=== PATIENT | female | born 1960 | race Caucasian/White ===

== ENCOUNTER → 2018-11-05 08:49 | Outpatient (CLI) | payer BC, SELFPAY ==
--- NOTE | 2018-11-05 08:49 | RAD_ITS ---
STUDY: X-RAY - LEFT FOOT CLINICAL: Female, 58 years old. Dorsal foot pain TECHNIQUE: 3 view(s) of the foot. COMPARISON: None. FINDINGS: Normal talus and tarsal bones. Calcaneal spurs Normal visualized subtalar, talonavicular, calcaneocuboid, tarsal and tarsometatarsal articulations. Normal metatarsi. Normal metatarsophalangeal joint of the great toe. Normal tibial and fibular sesamoid bones. Normal interphalangeal joint of the great toe. Normal phalanges of the great toe. Normal second through fifth metatarsophalangeal joints. Normal interphalangeal joints and phalanges of the lesser toes. The soft tissue structures are unremarkable. RAD/Foot min 3 Views IMPRESSION: Calcaneal spurs, no demonstrated fracture or suspicious osseous lesion Electronically Signed: Ishan Mccoy MD at 9:33 EDT , Service support ,
== END ==
PROVIDERS: Family Provider Nurse Practitioner Family; PCP Nurse Practitioner Family; Referring Provider Nurse Practitioner Family; Visit Provider Nurse Practitioner Family
DX: E03.9 Hypothyroidism, unspecified (principal); I10 Essential (primary) hypertension; E78.1 Pure hyperglyceridemia
CPT/HCPCS: 73630

== ENCOUNTER → 2019-03-11 07:33 | Outpatient (CLI) | payer BC, SELFPAY ==
[2019-03-11 11:13] LABS: Free T3 2.5 pg/mL (2.18-3.98)
[2019-03-11 13:58] LABS: Vitamin B12 494 pg/mL (211-911); Vitamin D,25 Hydroxy 33.1 ng/mL (29.95-100.01)
[2019-03-15 20:07] LABS: Testosterone, % Free 2.41 % (0.50-2.80); Testosterone, Free 0.24 ng/dL (0.10-0.85); Testosterone, Total 10 ng/dL (3-41)
[2019-03-16 12:08] LABS: T3 Reverse 16.3 ng/dL (9.2-24.1)
== END ==
PROVIDERS: Family Provider Nurse Practitioner Family; PCP Nurse Practitioner Family; Referring Provider Nurse Practitioner Family; Visit Provider Nurse Practitioner Family
DX: E03.9 Hypothyroidism, unspecified (principal); E55.9 Vitamin D deficiency, unspecified; M79.672 Pain in left foot; R53.83 Other fatigue
CPT/HCPCS: 36415; 82306; 82607; 82746; 83735; 84402; 84403; 84481; 84482

== ENCOUNTER → 2019-06-08 10:30 | Outpatient (CLI) | payer BC, SELFPAY ==
[2019-06-08 12:32] LABS: T3 Total - Triiodothyronine 1.03 ng/mL (0.6-1.81)
[2019-06-08 12:36] LABS: T4 Free Direct 1.06 ng/dL (0.76-1.46); T4 Total, Thyroxin 9.9 ug/dL (4.8-13.9); Thyroid Stim Hormone (TSH) 2.71 uIU/mL (0.358-3.74)
[2019-06-09 16:03] LABS: Thyroglobulin Antibody < 1.0 IU/mL (0.0-0.9); Thyroid Peroxidase AB < 9 IU/mL (0-34)
== END ==
PROVIDERS: PCP Nurse Practitioner Family
DX: Z13.29 Encounter for screening for other suspected endocrine disorder (principal)
CPT/HCPCS: 36415; 84436; 84439; 84443; 84480; 86376; 86800

== ENCOUNTER → 2020-05-11 12:08 | Outpatient (CLI) | payer BC, SELFPAY ==
[2020-05-11 16:10] LABS: ALB/GLOB Ratio 0.9 RATIO (0.9-2.4); AST(SGOT) 10 U/L (15-37); Alanine Aminotransfer ALT/SGPT 28 U/L (13-56); Albumin, Serum 3.5 g/dL (3.2-5.0); Alkaline Phosphatase 66 U/L (45-117); Anion Gap 6 (5-15); BUN 16 mg/dL (7-18); BUN/Creat Ratio 24.2 RATIO (10-20); Chloride 107 mmol/L (98-107); Cholesterol 166 mg/dL (200); Creatinine, Serum 0.66 mg/dL (0.55-1.02); EST Glomerular Filtration Rate 97 mL/min (>60); Est Glom Filt Rate - Afr Amer 118 mL/min (>60); Ferritin 101 ng/mL (8-252); Free T3 2.4 pg/mL (2.18-3.98); Globulin 3.8 g/dL (2.2-4.2); Glucose 82 mg/dL (74-106); High Density Lipoprotein 36 mg/dL; Potassium 4.1 mmol/L (3.5-5.1); Protein, Total 7.3 g/dL (6.4-8.2); Sodium Level 138 mmol/L (136-145); T4 Free Direct 0.77 ng/dL (0.76-1.46); T4 Total, Thyroxin 5.8 ug/dL (4.8-13.9); Triglycerides 231 mg/dL; Very Low Density Lipoprotein 46 mg/dL (5-40)
[2020-05-11 16:14] LABS: BNP,B-Type NATRIURETIC PEPTIDE 4.1 pg/mL (0-100)
[2020-05-11 16:16] LABS: T3 Total - Triiodothyronine 1.14 ng/mL (0.6-1.81); Vitamin D,25 Hydroxy 55.9 ng/mL
[2020-05-20 09:39] LABS: T3 Reverse 10.6 ng/dL (9.2-24.1); Thyroglobulin Antibody < 1.0 IU/mL (0.0-0.9); Thyroid Peroxidase AB < 9 IU/mL (0-34)
== END ==
PROVIDERS: PCP Nurse Practitioner Family
DX: E03.9 Hypothyroidism, unspecified (principal); I10 Essential (primary) hypertension; E78.1 Pure hyperglyceridemia; E55.9 Vitamin D deficiency, unspecified; R53.83 Other fatigue; R60.9 Edema, unspecified
CPT/HCPCS: 36415; 80053; 80061; 82306; 82728; 83880; 84436; 84439; 84443; 84480; 84481; 84482; 86376; 86800

== ENCOUNTER 2021-01-21 14:00 | Outpatient (RCR) | payer BC, SELFPAY ==
--- NOTE | 2020-11-21 08:56 | HP.PTEVAL_ITS ---
Patient's Visit Information PERRI HENDRIX is a 60 year old F referred to Physical Therapy by CLAIRE Grimes with a diagnosis of L shoulder and R hip pain. Date of Evaluation: 11/21/20 Physical Therapist: Shreyas Lux PT, ATC - Visit Plan Frequency: 2-3x /Week Duration: 4-6 Weeks Plan: L shoulder: Rotator cuff strengthening, scap stab ex's, UBE, and HEP. R hip: R LE stretching (piriformis and HS's), strengthening, core stab ex's, and HEP - Subjective Pt reports her L shoulder has been sore for 6 months. Pt reports her pain had an insidious onset in nature, but notes she has 6 grandchildren which may have caused some of the pain. Pt reports the pain has progressively worsened over this timespan, and describes the pain as sharp. Pt reports reaching behind her, and turning her steering wheel really increases her pain. Pt reports she must be careful with how she lifts objects like a laundry basket, and she makes sure not to lift her grandchildren with the L UE. Pt notes her L UE has been swelling over the past year. 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 No tingling or numbness in L UE. Pt is R hand dominant. Pt reports occasional sleep difficulty secondary to pain. 1/10 pain while at rest, 9/10 pain at worst (when she moves it wrong). Pt also notes R hip has been sore for about one year. Pt reports the pain is located in the gluteal region and radiates into her groin region. Pt reports she cant sit for a prolonged period of time, and she has difficulty with stair negotiation secondary to pain. Pt reports occasional tingling down her R LE to the mid calf region. Pt reports moving her hip around after a long car ride helps with the pain. Pt also notes DTR to R hip helps as well. Pt reports sleep difficulty as well on occasion secondary to pain. Pt reports she has not had xrays on the L shoulder or the R hip. R hip pain is 2/10 at rest, 7/10 pain at worst - Pain L shoulder Pain Intensity (Out of 10): 0 Pain Intensity Range: 9 R hip Pain Intensity (Out of 10): 2 Pain Intensity Range: 7 - Objective Neuro: B UE and LE sensation are WNL to light touch. B patellar and bicepital reflex= 2/3. Shoulder ROM: R shoulder flex= 165, abd= 160, ER= 30, IR WNL: L shoulder flex= 135, abd= 130, ER= 35, IR WNL. Hip ROM: B hips are WFL. Shoulder MMT: R shoulder is grossly 5/5 throughout. L shoulder is 4-/5 and painful with all testing. Hip MMT: L hip is grossly 5/5 throughout. R hip is grossly 4/5 throughout. Shoulder Special tests: Pos HK and empty can. LB and R hip Special tests: NE with repeated movements. Pos piriformis test - Balance/Special Test Scores Quick DASH Score: 43.1800 - Goals Goal 1:: Decrease L shoulder and R hip pain x 50% to aid with sleep Goal Time Frame: 4-6 Weeks Goal 2:: Increase L shoulder flex and abd ROM x 20 degrees to aid with overhead lifting Goal Time Frame: 4-6 Weeks Goal 3:: Increase L shoulder and R hip strength x 1 grade to aid with IADL's Goal Time Frame: 4-6 Weeks Goal 4:: I with HEP Goal Time Frame: 4-6 Weeks - Rehabilitation Potential Physical Therapy Diagnosis: Pt has L shoulder pain, weakness, and limited ROM secondary to L shoulder impingement syndrome. Pt has R hip pain, weakness, and limited flexibility secondary to piriformis syndrome. Rehabilitation Potential: Good - Anticipated Interventions Patient/Client Instruction: Educate patient on: Condition, Plan of Care For the Purpose of:: To improve self management Therapeutic Exercise to Include: Strength training, Endurance training, Body mechanics, Postural training, Dynamic Lumbar Stabilization, Scapular Strength/Stabilization For the Purpose of:: To decrease pain, To increase ROM, To improve muscle per formance and motor function Cryotherapy (ice pack, ice massage): Yes For the Purpose of:: To decrease pain Thank you for the opportunity to evaluate your patient. For Medicare and Medicare HMO plans, please review the plan of care and approve it. It will need to be FAXED BACK to us at [phone] for Medicare purposes. For Medicare only, by signing this I certify the plan of care. Please let me know if there are questions or concerns regarding this plan of care. Physician Signature: Date:
--- NOTE | 2021-01-18 14:57 | HP.PTREVAL ---
Maria Antonia Hoffmann, BRENNA-C, It has been my pleasure to treat PERRI HENDRIX over the last 4 visits for L shoulder and R hip pain. Please see the progress note below for an update on the physical therapy plan of care! Subjective: Pt reports she is still in a lot of pain. I dont think I have gotten any better yet. I have had to cancel a lot due to work Objective/Function: Pain is relatively unchanged after 2 Rx sessions. L shoulder ROM: flex= 140, abd= 85. L shoulder MMT 3-/5 throughout and painful. R hip 4/5 and painful. Pt is progressing but would benefit from further PT to focus on strengthening and pain control Plan Plan: L shoulder: Rotator cuff strengthening, scap stab ex's, UBE, and HEP. R hip: R LE stretching (piriformis and HS's), strengthening, core stab ex's, and HEP Balance/Gait/Functional tests - Balance/Special Test Scores Quick DASH Score: 43.1800 Goals Goal 1:: Decrease L shoulder and R hip pain x 50% to aid with sleep Goal Time Frame: 4-6 Weeks Goal Progress: Progressing Goal 2:: Increase L shoulder flex and abd ROM x 20 degrees to aid with overhead lifting Goal Time Frame: 4-6 Weeks Goal Progress: Progressing Goal 3:: Increase L shoulder and R hip strength x 1 grade to aid with IADL's Goal Time Frame: 4-6 Weeks Goal Progress: Progressing Goal 4:: I with HEP Goal Time Frame: 4-6 Weeks Goal Progress: Progressing Anticipated Interventions Patient/Client Instruction: Educate patient on: Condition, Plan of Care For the Purpose of:: To improve self management Therapeutic Exercise to Include: Strength training, Endurance training, Body mechanics, Postural training, Dynamic Lumbar Stabilization, Scapular Strength/Stabilization For the Purpose of:: To decrease pain, To increase ROM, To improve muscle performance and motor function Cryotherapy (ice pack, ice massage): Yes For the Purpose of:: To decrease pain Please do not hesitate to contact me at [phone] by phone or if you have questions or concerns regarding this new plan of care! Sincerely, Shreyas Lux, PT, ATC
--- NOTE | 2021-04-29 14:41 | HP.PT.NRP ---
PERRI HENDRIX was seen in my office for initial evaluation on 11/21/20. The following Plan of Care was established for this patient: Initial Frequency: 2-3x /Week Initial Duration: 4-6 Weeks Patient/Client Instruction: Educate patient on: Condition, Plan of Care For the Purpose of:: To improve self management Therapeutic Exercise to Include: Strength training, Endurance training, Body mechanics, Postural training, Dynamic Lumbar Stabilization, Scapular Strength/Stabilization For the Purpose of:: To decrease pain, To increase ROM, To improve muscle performance and motor function Cryotherapy (ice pack, ice massage): Yes For the Purpose of:: To decrease pain This patient was last seen in our office . Pertinent comments regarding their Physical therapy will appear below: Pt was treated for 5 PT visits for L shoulder and R hip pain through the date of 01/21/21. Pt has not returned today and is therefore discontinued at this time. At this point I will be discontinuing this patient from physical therapy. I would be happy to see this patient again in the future if found appropriate by the physician. Thank you! Shreyas Lux, PT, ATC Balance/Gait/Functional tests - Balance/Special Test Scores Quick DASH Score: 43.1800
== END 2021-01-21 19:00 | disposition home or self-care (01) ==
LOC: PT 14:00
PROVIDERS: PCP Nurse Practitioner Family; Referring Provider Nurse Practitioner Family; Visit Provider Nurse Practitioner Family
DX: M25.519 Pain in unspecified shoulder (principal); M25.551 Pain in right hip
CPT/HCPCS: 97110; 97161; 97164

== ENCOUNTER → 2021-08-29 | Outpatient (CLI) | payer BC, SELFPAY ==
[2021-08-29 12:40] LABS: ALB/GLOB Ratio 0.9 RATIO (0.9-2.4); AST(SGOT) 14 U/L (15-37); Alanine Aminotransfer ALT/SGPT 31 U/L (13-56); Albumin, Serum 3.3 g/dL (3.2-5.0); Alkaline Phosphatase 60 U/L (45-117); Anion Gap 5 (5-15); BUN 11 mg/dL (7-18); BUN/Creat Ratio 14.7 RATIO (10-20); Calcium,Total 8.7 mg/dL (8.5-10.1); Chloride 108 mmol/L (98-107); Cholesterol 180 mg/dL (200); Creatinine, Serum 0.75 mg/dL (0.55-1.02); EST Glomerular Filtration Rate 84 mL/min (>60); Est Glom Filt Rate - Afr Amer 101 mL/min (>60); Globulin 3.7 g/dL (2.2-4.2); Glucose 117 mg/dL (74-106); High Density Lipoprotein 38 mg/dL; Sodium Level 140 mmol/L (136-145); Triglycerides 176 mg/dL; Very Low Density Lipoprotein 35 mg/dL (5-40)
[2021-08-29 12:41] LABS: Vitamin D,25 Hydroxy 63.7 ng/mL
[2021-08-29 13:05] LABS: Ferritin 97 ng/mL (8-252); Free T3 2.5 pg/mL (2.18-3.98); T4 Free Direct 0.72 ng/dL (0.76-1.46); Thyroid Stim Hormone (TSH) 6.28 uIU/mL (0.358-3.74)
[2021-09-06 20:45] LABS: T3 Reverse 9.6 ng/dL (9.2-24.1); Thyroglobulin Antibody < 1.0 IU/mL (0.0-0.9); Thyroid Peroxidase AB 8 IU/mL (0-34)
== END | disposition home or self-care (01) ==
LOC: BIMLAB 08:43
PROVIDERS: PCP Nurse Practitioner Family; Referring Provider Nurse Practitioner Family; Visit Provider Nurse Practitioner Family
DX: E03.9 Hypothyroidism, unspecified (principal); R53.83 Other fatigue; E55.9 Vitamin D deficiency, unspecified; E06.3 Autoimmune thyroiditis; L65.9 Nonscarring hair loss, unspecified; R63.5 Abnormal weight gain; Z13.29 Encounter for screening for other suspected endocrine disorder; Z13.6 Encounter for screening for cardiovascular disorders; Z13.1 Encounter for screening for diabetes mellitus
CPT/HCPCS: 36415; 80053; 80061; 82306; 82728; 84436; 84439; 84443; 84480; 84481; 84482; 86376; 86800

== ENCOUNTER 2021-10-30 16:00 | Outpatient (RCR) | payer BC, SELFPAY ==
--- NOTE | 2021-06-18 10:50 | HP.PTEVAL_ITS ---
Patient's Visit Information PERRI HENDRIX is a 60 year old F referred to Physical Therapy by CLAIRE Grimes with a diagnosis of BPPV. Date of Evaluation: 06/18/21 Physical Therapist: OZIEL Gomez - Visit Plan Frequency: 1-2x /Week Duration: 4 Weeks Plan: 1-2X/ week for 4 weeks for vestibular inputs, walking with vertical and horizontal head turns, smooth pursuit in vertical with HEP. HEP: Vetical smooth pursuit, standing in corner on foam with chair in front with EC - Subjective It has been a couple of months. It was in the begining of Feb and felt funny driving to a [employer] appt and she went to go lay down flat and the room was spinning. The therapist put the head of the bed up and she felt nervous and did not feel right. Her came to get her. That was the most severe she had it. The dizzy lasted very short time and just felt off the rest of the time naheed the next few days. She saw her Dr. She felt great for 3-4 weeks. Then at the 4 week дмитрий she could feel it in her stomach and icky in her head and took mclezene and no room spinning with that. 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 She feels stomach icky this morning and her glasses are not on either and she feels things are blurry. She was fine until 2 weeks ago and started to feel weird. She know if she puts her head back quick she will occ that she has to grab and stabilize. IF she lays on her R side she feels a sensation of spinning but not spinning. She feels that she might have had some history of feeling off, not room spinning etc. Driving if she turns to quick she will feel that she moved too quick. She feels senstation of moving now more than in the past. She has slept with her head up for all these months. She is sleeping ok. Pt saw Dr Quesada and he did the hearing things and he felt that it was positional vertigo that was resolved. She saw a chiropractor and she felt that was little bit of pressure in the R ear. She can always lay on her L. - Pain L shoulder pain Pain Intensity (Out of 10): 2 - Objective -Hallpike B for dizziness or nystagmus. -Roll test B for dizziness or nystagmus. Horizontal Smooth pursuit X 30 seconds good tracking and no dizzziness. Vertical smooth pursuit X 30 seconds...jumpy tracking at times with no dizziness. Walking with horizontal head turns... no dizzy possible slight off feeling: Vertical head turns with walking... no dizzy with definite off and unsteady feeling. CATSIB 91 ( def off with standing on foam with EC).. had to reach and grab // bar. FGA 24 - Balance/Special Test Scores Functional Gait Assessment Score: 24 % Disability: 20.0000 CATSIB Score (Max score 120 seconds): 91 Dizziness Score: 38 - Goals Goal 1:: I HEP Goal Time Frame: 2-4 Weeks Goal 2:: Increase CATSIB by 10 seconds to decrease freq of dizziness (score was 91 at eval) Goal Time Frame: 4-6 Weeks Goal 3:: Be able to walk with vertical head turns without having any sensation of feeling off and unsteady - Rehabilitation Potential Rehabilitation Potential: Good - Anticipated Interventions Patient/Client Instruction: Educate patient on: Plan of Care For the Purpose of:: To decrease pain, To increase ROM, To improve nutrient delivery to tissue, To increase oxygenation perfusion, To improve muscle performance and motor function, To improve ability to perform ADL's, To increase tolerance to activity/condition/position, To improve performance and independence with ADL's, To improve ability of physical actions for home/community/work/leisure, To improve health of tissue, To decrease soft tissue restriction, To increase flexibility/ROM Therapeutic Exercise to Include: Strength training, Postural training, Flexibilty training, Neuromotor development, Passive ROM, Active ROM, Scapular Strength/Stabilization For the Purpose of:: To decrease swelling/inflammation, To increase ROM, To improve nutrient delivery to tissue, To improve muscle performance and motor function, To improve ability to perform ADL's, To increase tolerance to activity/condition/position, To improve performance and independence with ADL's, To decrease level of supervision to perform tasks, To improve ability of physical actions for home/community/work/leisure, To improve health of tissue, To decrease soft tissue restriction, To increase flexibility/ROM Manual Therapy Techniques to Include: Mobilization, Passive ROM, Soft tissue mobilization For the Purpose of:: To decrease pain, To increase ROM, To improve nutrient delivery to tissue, To improve muscle performance and motor function, To improve ability to perform ADL's, To improve performance and independence with ADL's, To decrease level of supervision to perform tasks, To improve ability of physical actions for home/community/work/leisure, To improve health of tissue, To decrease soft tissue restriction, To increase flexibility/ROM Thank you for the opportunity to evaluate your patient. For Medicare and Medicare HMO plans, please review the plan of care and approve it. It will need to be FAXED BACK to us at [phone] for Medicare purposes. For Medicare only, by signing this I certify the plan of care. Please let me know if there are questions or concerns regarding this plan of care. Physician Signature: Date:
--- NOTE | 2022-01-06 10:56 | HP.PT.NRP ---
PERRI HENDRIX was seen in my office for initial evaluation on 06/18/21. The following Plan of Care was established for this patient: Initial Frequency: 1-2x /Week Initial Duration: 4 Weeks Patient/Client Instruction: Educate patient on: Plan of Care For the Purpose of:: To decrease pain, To increase ROM, To improve nutrient delivery to tissue, To increase oxygenation perfusion, To improve muscle performance and motor function, To improve ability to perform ADL's, To increase tolerance to activity/condition/position, To improve performance and independence with ADL's, To improve ability of physical actions for home/community/work/leisure, To improve health of tissue, To decrease soft tissue restriction, To increase flexibility/ROM Therapeutic Exercise to Include: Strength training, Postural training, Flexibilty training, Neuromotor development, Passive ROM, Active ROM, Scapular Strength/Stabilization For the Purpose of:: To decrease swelling/inflammation, To increase ROM, To improve nutrient delivery to tissue, To improve muscle performance and motor function, To improve ability to perform ADL's, To increase tolerance to activity/condition/position, To improve performance and independence with ADL's, To decrease level of supervision to perform tasks, To improve ability of physical actions for home/community/work/leisure, To improve health of tissue, To decrease soft tissue restriction, To increase flexibility/ROM Manual Therapy Techniques to Include: Mobilization, Passive ROM, Soft tissue mobilization For the Purpose of:: To decrease pain, To increase ROM, To improve nutrient delivery to tissue, To improve muscle performance and motor function, To improve ability to perform ADL's, To improve performance and independence with ADL's, To decrease level of supervision to perform tasks, To improve ability of physical actions for home/community/work/leisure, To improve health of tissue, To decrease soft tissue restriction, To increase flexibility/ROM This patient was last seen in our office 10/30/21. Pertinent comments regarding their Physical therapy will appear below: GABRIELA PT. At this point I will be discontinuing this patient from physical therapy. I would be happy to see this patient again in the future if found appropriate by the physician. Thank you! Tamie De Dios, MPT Balance/Gait/Functional tests - Balance/Special Test Scores Functional Gait Assessment Score: 24 % Disability: 20.0000 CATSIB Score (Max score 120 seconds): 91 Dizziness Score: 38
== END 2021-10-30 19:00 | disposition home or self-care (01) ==
LOC: PT 16:00
PROVIDERS: PCP Nurse Practitioner Family; Visit Provider Nurse Practitioner Family
DX: H81.10 Benign paroxysmal vertigo, unspecified ear (principal)
CPT/HCPCS: 97110; 97161; 97162

== ENCOUNTER 2022-07-01 08:08 | Outpatient (CLI) | payer BC, SELFPAY | END 2022-07-01 23:59 | disposition home or self-care (01) | LOC: BIMLAB 08:10 | PROVIDERS: PCP Nurse Practitioner Family | DX: R53.83 Other fatigue (principal); F41.9 Anxiety disorder, unspecified | CPT/HCPCS: 36415 ==

== ENCOUNTER → 2022-12-29 | Outpatient (CLI) | payer BC, SELFPAY ==
[2022-12-29 12:43] LABS: Free T3 2.5 pg/mL (2.18-3.98); T4 Free Direct 1.26 ng/dL (0.76-1.46); Thyroid Stim Hormone (TSH) 0.08 uIU/mL (0.358-3.74)
[2023-01-03 00:06] LABS: T3 Reverse 18.3 ng/dL (9.2-24.1); Thyroglobulin Antibody < 1.0 IU/mL (0.0-0.9); Thyroid Peroxidase AB 14 IU/mL (0-34)
== END | disposition home or self-care (01) ==
LOC: BIMLAB 08:44
PROVIDERS: PCP Nurse Practitioner Family
DX: E03.9 Hypothyroidism, unspecified (principal)
CPT/HCPCS: 36415; 84439; 84443; 84481; 84482; 86376; 86800

== ENCOUNTER → 2023-02-17 | Outpatient (CLI) | payer BC, SELFPAY ==
[2023-02-17 12:39] LABS: Homocysteine 6.1 umol/L (3.2-10.7)
[2023-02-17 12:47] LABS: Insulin 22.5 mU/L (2.6-37.6); Vitamin B12 557 pg/mL (211-911)
[2023-02-17 12:57] LABS: ALB/GLOB Ratio 0.9 RATIO (0.9-2.4); AST(SGOT) 14 U/L (15-37); Alanine Aminotransfer ALT/SGPT 25 U/L (13-56); Albumin, Serum 3.5 g/dL (3.2-5.0); Alkaline Phosphatase 67 U/L (45-117); Anion Gap 4 (5-15); BUN 20 mg/dL (7-18); BUN/Creat Ratio 28.3 RATIO (10-20); Calcium,Total 8.9 mg/dL (8.5-10.1); Chloride 109 mmol/L (98-107); Cholesterol 171 mg/dL (200); Creatinine, Serum 0.71 mg/dL (0.55-1.02); EST Glomerular Filtration Rate 89 mL/min (>60); Est Glom Filt Rate - Afr Amer 108 mL/min (>60); Free T3 2.2 pg/mL (2.18-3.98); Glucose 111 mg/dL (74-106); High Density Lipoprotein 43 mg/dL; Potassium 4.1 mmol/L (3.5-5.1); Protein, Total 7.5 g/dL (6.4-8.2); Sodium Level 138 mmol/L (136-145); T4 Free Direct 1.06 ng/dL (0.76-1.46); Thyroid Stim Hormone (TSH) 1.67 uIU/mL (0.358-3.74); Triglycerides 121 mg/dL; Very Low Density Lipoprotein 24 mg/dL (5-40)
[2023-02-21 10:09] LABS: Methylmalonic Acid Bld 109 nmol/L (0-378)
[2023-02-25 19:07] LABS: Copper, Serum or Plasma 122 ug/dL (80-158); LDL, Direct 120295 117 mg/dL (0-99); T3 Reverse 17.5 ng/dL (9.2-24.1); Zinc, Plasma or Serum 92 ug/dL (44-115)
== END | disposition home or self-care (01) ==
PROVIDERS: PCP Nurse Practitioner Family
DX: E03.9 Hypothyroidism, unspecified (principal)
CPT/HCPCS: 36415; 80053; 80061; 82525; 82607; 83090; 83525; 83721; 83921; 84439; 84443; 84481; 84482; 84630; 86141

== ENCOUNTER → 2023-02-20 | Outpatient (CLI) | payer BC, SELFPAY ==
[2023-02-20 12:41] LABS: Absolute Lymphocyte Count 4.58 X10^3/uL (0.83-4.51); Absolute Neutrophil Count 3.3 X10^3/uL (2.0-7.7); Basophil# 0.07 X10^3/uL; Basophil% 0.8 % (0-1); Eosinophil# 0.26 X10^3/uL; Eosinophils% 2.9 % (0-5); Hematocrit 45.9 % (37-47); Hemoglobin 14.6 g/dL (12.0-15.0); Lymphocyte # 4.58 X10^3/ul (0.83-4.51); Lymphocyte % 51.9 % (19-41); Mean Corp Hgb Conc 31.8 g/dL (32-36); Mean Corpuscular Volume 91.3 fL (81-99); Mean Platelet Vol. 10.1 fl (6.2-12.0); Monocyte# 0.53 X10^3/uL; NRBC Flagged by Analyzer 0 % (0-5); Neutrophil # 3.28 X10^3/uL (2.7-7.7); Neutrophil % 37.3 % (47-70); Platelet Count 353 K/mm3 (150-450); RBC Distribution Width CV 13.7 % (11.6-14.6); RBC Distribution Width SD 46.4 fl (35.1-43.9); Red Blood Count 5.03 M/mm3 (4.2-5.4); White Blood Count 8.8 K/mm3 (4.4-11.0)
[2023-02-20 13:41] LABS: Hemoglobin A1c 5.3 % (3.8-5.6)
== END | disposition home or self-care (01) ==
LOC: BIMLAB 08:59
PROVIDERS: PCP Nurse Practitioner Family
DX: E03.9 Hypothyroidism, unspecified (principal)
CPT/HCPCS: 36415; 83036; 85025

== ENCOUNTER 2023-06-25 08:49 | Outpatient (RCR) | payer BC, SELFPAY ==
--- NOTE | 2023-06-25 11:19 | HP.PTEVAL ---
Patient's Visit Information Visit Information Visit Information: PERRI HENDRIX is a 62 year old F referred to Physical Therapy by CLAIRE Grimes with a diagnosis of R hip pain. Date of Evaluation: 06/25/23 Physical Therapist: OZIEL Gomez Visit Plan Frequency: 2x /Week Duration: 2 Months Plan: 2X/ week for 8 weeks for AT for neutral spine core stability, hip strengthening, gait training, stretching of R hip with HEP. May try some land based therapy if AT is not helpful so that she can continue core stability at home after DC HEP: bridges, PT, LTR Subjective Subjective: Pt has had pain in hip and back for years. She has gained so much weight the last 10 years. In fall her R hip hurt worse and did some PT at [facility] and she felt like she was a little better. In Apr it started to hurt more. She then flew to [place] on vacation and there for a week. She was hurting when she got there and she would have to walk a little ways each day and each day it was getting worse and worse and the pain would not stop. They re did the x-ray and then did water therapy. 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 She took mobic for the last 2 weeks and it seemed like it heped some. It was not sharp grab pain when she goes to stand up in the front of the groin. Current symptoms: could not put pressure through R leg for a good 5 min. Her hip is achy in the back and on the side of the hip also. Increase anterior hip pain with hip flexion. No N&T. R hip feels tense and tired. She does not think she wakes up due to the pain. Pain R lateral hip pain: Pain Intensity (Out of 10): 0 Pain Intensity Range: 3 R groin pain: Pain Intensity (Out of 10): 1 Pain Intensity Range: 2 Objective Objective: Gait: Walks with WBOS and decreased stride length and decrease stance time on the R LE. LE MMT: R hip flex 7.7 and L 11.8 R knee ext 21.1 and L 19.2 R knee flex 13 and L 12.2 R hip abd in supine 13.8 and L 16.1 Bridge: 3/4 normal ROM R hip AROM flex 114, ext 15 L hip flex 118 and ext 21 Balance/Special Test Scores Lower Extremity Functional Score: 37 Goals Goal 1:: I HEP Goal Time Frame: 6-8 Weeks Goal 2:: Decrease hip pain with first few steps of gait going from sit to stand Goal Time Frame: 6-8 Weeks Goal 3:: Walk with increase stride length with gait Goal Time Frame: 6-8 Weeks Goal 4:: Increase R LE strength (at the time of the eval: LE MMT: R hip flex 7.7 and L 11.8 R knee ext 21.1 and L 19.2 R knee flex 13 and L 12.2 R hip abd in supine 13.8 and L 16.1) Goal Time Frame: 6-8 Weeks Rehabilitation Potential Rehabilitation Potential: Good Anticipated Interventions Patient/Client Instruction: Educate patient on: Condition and Plan of Care For the Purpose of:: To decrease pain, To increase ROM, To improve nutrient delivery to tissue, To improve muscle performance and motor function, To improve ability to perform ADL's, To increase tolerance to activity/condition/position, To improve health of tissue, To decrease soft tissue restriction and To increase flexibility/ROM Therapeutic Exercise to Include: Strength training, Endurance training, In an aquatic setting, Passive ROM, Active ROM, Dynamic Lumbar Stabilization and Scapular Strength/Stabilization For the Purpose of:: To decrease pain, To increase ROM, To improve nutrient delivery to tissue, To improve muscle performance and motor function, To improve ability to perform ADL's, To increase tolerance to activity/condition/position, To improve performance and independence with ADL's, To decrease level of supervision to perform tasks, To improve ability of physical actions for home/community/work/leisure, To improve health of tissue, To decrease soft tissue restriction, To increase flexibility/ROM, To improve endurance, To improve balance and To improve safety with gait Functional Training to Include: Gait training For the Purpose of:: To improve gait and locomotor functions Text: Thank you for the opportunity to evaluate your patient. For Medicare and Medicare HMO plans, please review the plan of care and approve it. It will need to be FAXED BACK to us at [phone] for Medicare purposes. For Medicare only, by signing this I certify the plan of care. Please let me know if there are questions or concerns regarding this plan of care. Physician Signature: Date:
--- NOTE | 2023-08-03 11:26 | HP.PT.NRP(2) ---
Patient Information Patient Information: PERRI HENDRIX was seen in my office for initial evaluation on . The following Plan of Care was established for this patient: Last Seen Last Seen: This patient was last seen in our office . Pertinent comments regarding their Physical therapy will appear below: At this point I will be discontinuing this patient from physical therapy. I would be happy to see this patient again in the future if found appropriate by the physician. Thank you! Tamie De Dios, MPT
== END 2023-06-25 19:00 | disposition home or self-care (01) ==
LOC: PT 08:49
PROVIDERS: PCP Nurse Practitioner Family; Referring Provider Nurse Practitioner Family; Visit Provider Nurse Practitioner Family
DX: M25.551 Pain in right hip (principal); M25.552 Pain in left hip
CPT/HCPCS: 97161